=== PATIENT | female | born 1950 | race Caucasian/White ===

== ENCOUNTER 2019-01-17 07:58 | Day surgery (SDC) | payer MEDICARE, OTHER, SELFPAY ==
[2019-01-14 14:31] VITALS: BMI 26.4
[2019-01-17] VITALS (15 sets, daily range): BP systolic 120–142; BP diastolic 58–84; PULSE 60–90; RESP 10–16; TEMP 35.9–36.6; O2SAT 95–99; BMI 26.2
--- NOTE | 2019-01-17 | DI.RAD.S_ITS ---
PROCEDURE: XR CERVICAL SPINE 2V OR 3V INDICATIONS: C6-7 MOBI C ACDF.. C6-7 IS NEW, OTHERS ARE OLDER TECHNIQUE: 2 view(s) of the cervical spine were acquired. [facility], XR CERVICAL SPINE 2 OR 3 VIEWS, 08/21/2017, 11:03. FINDINGS: Spot fluoroscopic intraoperative views demonstrating C6-C7 prosthetic disc. Pre-existing C4-C5 and C5-C6 prosthetic discs also noted. Expected intraoperative alignment Dictated by: Tanmay Kirby M.D. on 01/17/2019 at 15:12 Approved by: Tanmay Kirby M.D. on 01/17/2019 at 15:13
[2019-01-17] MEDS: LACTATED RINGERS 1,000 ML 42 ML IV ×2 (08:59→11:12)
--- NOTE | 2019-01-17 09:05 | PM.PREOP ---
Pre-operative Note Interval Note History & Physical reviewed/Exam performed by Physician: Yes Changes to H&P: No
--- NOTE | 2019-01-17 09:11 | SUR.PREOP ---
cardiac cath, no stents, no blockage; approx 2 years ago
--- NOTE | 2019-01-17 09:14 | PM.OP.1 ---
Operative Date/Time/Diagnoses Date of procedure: 01/17/19 Time of procedure: 10:56 Pre-op diagnosis: Cervical stenosis Post-op diagnosis: same Procedure & Clinicians Procedure: C6-7 anterior diskectomy an artificial disc replacement Use of microscope Same procedure as scheduled: Yes Indications: [age] year old female with intractable pain from cervical stenosis. They had failed conservative management and requested operative intervention. Risks and benefits of surgery were discussed and appropriate consents were obtained. Surgeon: Billy Padilla Silk Worker: Cierra Cardoza Anesthesia Type: General Operative Notes Findings: None Closure Type: primary Specimen(s): none sent Prosthetic devices, grafts, tissues, transplants, or devices: Dania Mobi-C Estimated Blood Loss (mL): 5 Procedure in detail: Patient was brought to the operating room and intubated on the table. A time-out was performed. Preoperative antibiotics were given. The neck was prepped and draped in the standard sterile fashion. Using a skin fold, we made a 3 cm oblique incision on the left side. We used Bovie to go through the platysma and then did a standard anterolateral blunt dissection down to the precervical fascia. We had to work through her scar tissue from her last surgery. Fascia was nicked and elevated up. A marker was placed and x-ray was taken for localization. We then subperiosteally elevated up the longus colli muscles. Self-retaining retractors were placed. [place] pins were placed under x-ray guidance to be parallel to the endplates. We then brought in the microscope. A scalpel used to perform an annulotomy. We then used a combination of pituitaries and curettes and Kerrison to perform a complete anterior diskectomy at C6-7. We took down the PLL and used Kerrison to remove any posterior disc material and osteophytes. At the end we could from the nerve hook cephalad caudally and out the foramen and everything was opened. We distracted open with the parallel sales and marketing coordinator. We then used the horseshoes for sizing. We then used the trials. We then inserted a 17 x 15 x 5 mm size Mobi-C artificial disc replacement under fluoroscopic guidance for positioning. The traction was released and x-ray was checked again. The self-retaining retractors and [place] pins were removed and final x-rays taken. The wound was irrigated. There was no bleeding. The carotid was beating nicely. The platysma was closed. The superficial was closed. The skin was closed. A sterile dressing was placed. They were then extubated and brought to recovery room with no complications. Complications: none Post-operative Condition: stable Disposition: PACU Plan for aftercare: Outpatient with bed, could possibly discharge home later today
[2019-01-17] MEDS: CEFAZOLIN 2 GM/100 ML FROZ.PIGGY IV (09:41)
--- NOTE | 2019-01-17 10:10 | SUR.OPER ---
Supine on padded OR bed, head on gel donut, towel between shoulders, both arms padded and tucked at side, legs uncrossed, safety belt at thigh, tape over blanket over lower legs .
[2019-01-17] MEDS: THROMBIN (RECOMBINANT) 5,000 UNIT VIAL 5000 UNIT TOP (10:16)
[2019-01-17] MEDS: BUPIVACAINE 0.25% W/ EPI 30 ML VIAL 60 ML INJ (10:17)
[2019-01-17] MEDS: SODIUM CHLORIDE 0.9% 1,000 ML, GENTAMICIN 80 MG IRR (10:19)
[2019-01-17] MEDS: fentaNYL 100 MCG/2 ML INJ 50 MCG IV ×2 (11:20→11:25)
[2019-01-17] MEDS: HYDROMORPHONE 2 MG INJ 0.5 MG IV ×4 (11:50→12:05)
[2019-01-17] MEDS: GABAPENTIN 600 MG TABLET PO (13:50)
[2019-01-17] MEDS: LACTATED RINGERS 1,000 ML 125 ML IV (13:58)
--- NOTE | 2019-01-17 15:01 | PM.PNPO.1 ---
Subjective Subjective Date Patient Seen: 01/17/19 Time Patient Seen: 15:01 Interval history: She is doing well. No swallowing difficulties. Pain very tolerable. Has been up with therapy. Exam Vital Signs (past 8 hours): - 01/17/19 08:35 01/17/19 11:10 01/17/19 11:15 Temperature 97.1 F L 97 F L 97.1 F L Pulse Rate 77 87 88 Respiratory Rate 16 13 12 Blood Pressure 133/73 142/65 H 132/73 Pulse Oximetry 99 96 96 01/17/19 11:20 01/17/19 11:25 01/17/19 11:30 Temperature 97.2 F L Pulse Rate 90 79 87 Respiratory Rate 14 10 L 12 Blood Pressure 120/72 139/74 126/66 Pulse Oximetry 96 96 97 01/17/19 11:44 01/17/19 11:55 01/17/19 12:05 Temperature 96.7 F L Pulse Rate 74 69 75 Respiratory Rate 10 L 12 12 Blood Pressure 124/61 127/63 126/65 Pulse Oximetry 98 97 99 01/17/19 12:20 01/17/19 12:35 01/17/19 12:50 Temperature 97.6 F Pulse Rate 64 60 81 Respiratory Rate 12 14 16 Blood Pressure 121/64 126/62 135/84 Pulse Oximetry 98 98 98 01/17/19 13:20 01/17/19 13:50 01/17/19 14:50 Temperature 97.3 F L 97.9 F 98 F Pulse Rate 85 77 78 Respiratory Rate 16 16 16 Blood Pressure 137/58 L 120/70 123/72 Pulse Oximetry 95 96 97 Oxygen Delivery Method Nasal Cannula Oxygen Flow Rate 2 Const Orientation: alert and oriented x3 Back/Spine/Pelvis Other: CDI. 5/5 motor both upper extremities Assessment & Plan Post-op Postoperative Procedures: Procedures Operation Date: 08/30/18 07:45 <No data on this case meets the specified criteria> Operation Date: 01/17/19 10:15 Actual Procedures Side Surgeon p C6-7 anterior discectomy & artificial disc replacement Billy Padilla MD she is doing well. She is okay to discharge home. Quality VTE Deep Vein Thrombosis/Pulmonary Embolism Present on Admission: No
--- NOTE | 2019-01-17 17:08 | PT.IIE ---
Current Diagnoses Spinal stenosis, cervical region (01/17/19) Other cervical disc degeneration, unspecified cervical region (01/17/19) Strain of muscle, fascia and tendon at neck level, subsequent encounter (01/17/19) Surgery Performed Operation Date: 08/30/18 07:45 <No data on this case meets the specified criteria> Operation Date: 01/17/19 10:15 Actual Procedures p C6-7 anterior discectomy & artificial disc replacement - Billy Padilla MD Surgical History (Last Updated 01/14/19 @ 15:00 by Shannon Rodriguez RN) History of bladder surgery (Acute ~2007) History of cardiac cath (Acute ~01/2017) History of total abdominal hysterectomy and bilateral salpingo-oophorectomy (Acute) Hx of Achilles tendon repair (Acute ~03/2010) Hx of bladder repair surgery (Acute ~1978) Hx of cervical discectomy (Acute ~2017) Hx of cholecystectomy (Acute ~1974) Medical History (Last Updated 01/14/19 @ 15:10 by Shannon Rodriguez RN) Diabetes (Acute) Dyslipidemia (Acute) Fibromyalgia (Acute) GERD (gastroesophageal reflux disease) (Acute) HTN (hypertension) (Acute) Hypothyroidism (Acute) Left-sided trigeminal neuralgia (Acute) Lung nodule seen on imaging study (Acute) Mason's neuroma of right foot (Acute) Myocardial infarction (Acute ~2014) Neck pain (Acute) POPPY on CPAP (Acute) PAC (premature atrial contraction) (Acute) Shingles (Acute) Sinus drainage (Acute) Skin cancer (Acute) Synovial cyst of right wrist (Acute) Physical Therapy Inpatient Evaluation/Re-Eval M1 PT/OT-IP Prior Functional Status Start: 01/17/19 16:50 Freq: NEEDED Status: Active Protocol: Document 01/17/19 16:51 NFW (Rec: 01/17/19 17:08 NFW [id number]) Medical Review Prior Functional Status Medical History Reviewed Yes Communication Patient a little groggy but able to follow through with full treatment. Mobility and Gait Patient did not need any walking aids prior to surgery. Able to walk as needed with daily activities. Activities of Daily Living and IADL's Prior to surgery patient reports that she was independent in all ADLs. Prior Functional Level (Other details) Prior to srgery patient states she was able to follow through with cooking, grocery shopping, laundry but with pain. She has assist with housekeeping. Social History Household Members spouse Living Arrangements House Number of Floors (Floors) One Floor Home Environment High Toilet,Walk in Shower Home Equipment Front Wheel Walker,Four Wheel Walker,Manual Wheelchair Employment Status Retired M2 PT-IP Current Condition Start: 01/17/19 16:50 Freq: NEEDED Status: Active Protocol: Document 01/17/19 16:51 NFW (Rec: 01/17/19 17:08 NF [id number]) Physical Therapy Current Condition Current Condition Evaluation Date 01/17/19 Treatment Diagnosis s/p C6-7 anterior diskectomy and artificial disc replacement Precautions Cervical Spine Precautions Soft Collar for Comfort,No Heavy Lifting,Log Roll Weight Bearing Status Weight Bearing Status Full Weight Bearing M3 PT-IP Subjective Start: 01/17/19 16:50 Freq: NEEDED Status: Active Protocol: Document 01/17/19 16:51 NFW (Rec: 01/17/19 17:08 NFW [id number]) Subjective Physical Therapy Visit Type Type Initial Evaluation Visit Start Time 14:35 Visit Stop Time 15:15 Total Visit Minutes 40 Number of CARDIAC SURGEON Visits 0 Physical Therapy Visit Comments Patient Comments Anxious to go home. Patient Goals Return home with . Therapy Pain Assessment Pain When Pain Assessed After Treatment Pain Present Pain Present Denied Pain M4 PT-IP Mobility and Gait Start: 01/17/19 16:50 Freq: NEEDED Status: Active Protocol: Document 01/17/19 16:51 NFW (Rec: 01/17/19 17:08 NFW [id number]) PT-Bed Mobility Assessment Rolling Type of Rolling Roll to Left Level of Assist Independent Supine to Sit Supine to Sit Standby Assistance,1 Person Assistance Sit to Supine Sit to Supine Standby Assistance,1 Person Assistance Scooting Scooting to Edge of Bed Independent Scooting Up and Down in Bed Independent PT-Transfer Assessment Sit to and From Stand Sit to and from Stand Standby Assistance,1 Person Assistance Equipment Transfer Assistive Device Gait Belt,Front Wheeled Walker Orthotic/Prosthetic Devices or Brace: Yes Transfers Transfer Destination Bed,Chair,Toilet Transfer Ability Level of Assist Standby Assistance,1 Person Assistance Comments Mobility Comments Good form with all transitional activities protecting the cervical spine. Gait Assessment Gait Gait Assistance Required: Standby Assistance,1 Person Assist Distance (Feet) 250 Able to Maintain Weight Bearing Status Yes During Gait Assistive Devices Assistive Device Gait Belt,Front Wheeled Walker Orthotic/Prosthetic Devices or Brace: Yes Gait Deviations General Gait Pattern Within Normal Limits Comments Gait Comments Initially started patient with use of FWW. After 10 feet able to release walker and walk without any aids and did well. 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 Muscle Tone Muscle Tone WNL Yes M6 PT-IP Treatment Start: 01/17/19 16:50 Freq: NEEDED Status: Active Protocol: Document 01/17/19 16:51 NFW (Rec: 01/17/19 17:08 [facility] [id number]) Physical Therapy Treatment Education Education Provided Precautions,Post-Op Packet, Safety Brace Education Donning,Fraser,Patient M7 PT-IP Assessment and Plan Start: 01/17/19 16:50 Freq: NEEDED Status: Active Protocol: Document 01/17/19 16:51 NFW (Rec: 01/17/19 17:08 [facility] [id number]) PT Summary Assessment and Plan Potential Rehabilitation Potential Excellent Status of Condition at Evaluation Stable Summary Progress Towards Goals Safe For Discharge Assessment Summary Patient s/p above surgery, receptive to all educational material provided, performed well in physical therapy and is now ready for discharge. Frequency of Treatment Frequency Of Treatment Discharge Recommendations To Nursing Amount of Assist Needed 1 Person Assist Discharge Recommendations PT Discharge Recommendations Home with Assistance
[2019-01-17] MEDS: INSULIN ASPART 100 UNIT/ML INSULN PEN SUBCUT (17:38)
[2019-01-17] MEDS: METFORMIN HCL 500 MG TABLET PO (17:38)
[2019-01-17] MEDS: hydrOXYzine pamoate 25 MG CAPSULE PO (17:39)
--- NOTE | 2019-01-17 18:23 | PC.NURSE ---
Discharge Note- Patient discharged home. Discharge instructiohns and education reviewed with patient and signed. IV line removed and bandaid applied. Patient assisted woith getting dressed and packing up personal belongings. Rx's given. Patient left via wheelchair to private car with all personal belongings at 1730 after husnad arrived.
== END 2019-01-17 17:35 | disposition home or self-care (01) ==
LOC: OR 13:28 → AC 13:28
PROVIDERS: Visit Provider Orthopaedic Surgery
PROC: (CPT 22856; principal; 2019-01-17 10:15)
DX: M48.02 Spinal stenosis, cervical region (principal); M50.323 Other cervical disc degeneration at C6-C7 level; S16.1XXA Strain of muscle, fascia and tendon at neck level, initial encounter
CPT/HCPCS: 22856; 72040; 76000; 82962; 97116; 97161; 97530; C1776; J0330; J0690; J1100; J1170; J2405; J2704; J3010